=== PATIENT | male | born 1970 | race Caucasian/White ===

== ENCOUNTER 2018-05-09 08:25 | Day surgery (SDC) | payer BC ==
[~2018-05-09 08:25] MED LIST: Dexamethasone 4 MG/ML 5 ML MDV ONE; EPINEPHrine 1 MG/ML 30 ML MDV SCH; HYDROmorphone 0.5 MG/0.5 ML Syringe ONE; Ketorolac 30 MG/ML SDV ONE; Lactated Ringers 1,000 ML IV SCH; Lactated Ringers 1,000 ML ONE; Lidocaine 1% 6 ML ONE; Lidocaine 1%/Sod Bicarbonate in NS 8.4% 1 ML Syringe IDERM PRN; Midazolam 1 MG/ML 2 ML SDV ONE; Ondansetron 4 MG/2 ML SDV ONE; Propofol 200 MG/20 ML SDV ONE; Sodium Chloride 0.9% 10 ML Syringe FLUSH PRN; ceFAZolin 1 GM Vial ONE; fentaNYL 250 MCG/5 ML SDV ONE
[2018-05-09] MEDS ORDERED: Bupivacaine 0.25% 10 ML SDV ONE (09:21)
--- NOTE | 2018-05-09 09:40 | PCM.PREANE ---
Preanesthetic Assessment - Anesthesia/Transfusion/Family Hx Anesthesia History: Prior Anesthesia Without Reaction Family History of Anesthesia Reaction: No Transfusion History: No Prior Transfusion(s) - Review of Systems General: No Symptoms Pulmonary: No Symptoms Cardiovascular: No Symptoms Gastrointestinal: No Symptoms Neurological: No Symptoms Other: Reports: None - Physical Assessment NPO Status Date: 05/08/18 NPO Status Time: 22:30 Pulse: 74 O2 Sat by Pulse Oximetry: 96 Respiratory Rate: 12 Blood Pressure: 151/100 Temperature: 97.8 C ASA Class: 1 Mental Status: Alert & Oriented x3 Airway Class: Mallampati = 1 Dentition: Reports: Normal Dentition Thyro-Mental Finger Breadths: 3 Mouth Opening Finger Breadths: 3 ROM/Head Extension: Full Lungs: Clear to Auscultation, Normal Respiratory Effort Cardiovascular: Regular Rate, Regular Rhythm - Allergies Allergies/Adverse Reactions: Allergies Allergy/AdvReac Type Severity Reaction Status Date / Time erythromycin base Allergy Mild Rash Verified 05/08/18 15:25 [Erythromycin Base] Tetracyclines Allergy Mild Rash Verified 05/08/18 15:25 Penicillins Allergy Nausea and Verified 05/08/18 15:25 Vomiting - Acknowledgements Anesthesia Type Planned: General Anesthesia Pt an Appropriate Candidate for the Planned Anesthesia: Yes Alternatives and Risks of Anesthesia Discussed w Pt/Guardian: Yes Pt/Guardian Understands and Agrees with Anesthesia Plan: Yes PreAnesthesia Questionnaire - Past Health History Medical/Surgical History: Denies Medical/Surgical History HEENT History: Reports: None, Impaired Vision Cardiovascular History: Reports: None Respiratory History: Reports: None Gastrointestinal History: Reports: None Genitourinary History: Reports: None 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 Musculoskeletal History: Reports: None Neurological History: Reports: None Psychiatric History: Reports: None Endocrine/Metabolic History: Reports: None Hematologic History: Reports: None Immunologic History: Reports: None Oncologic (Cancer) History: Reports: None Dermatologic History: Reports: Other (See Below) Other Dermatologic History: rash - Past Surgical History Head Surgeries/Procedures: Reports: None HEENT Surgical History: Reports: Tonsillectomy Cardiovascular Surgical History: Reports: None Respiratory Surgical History: Reports: None GI Surgical History: Reports: None Male Surgical History: Reports: Vasectomy Endocrine Surgical History: Reports: None Neurological Surgical History: Reports: None Musculoskeletal Surgical History: Reports: None, Arthroscopic Knee ((R)) Oncologic Surgical History: Reports: None Dermatological Surgical History: Reports: None - SUBSTANCE USE Smoking Status *Q: Former Smoker Days Per Week of Alcohol Use: 7 Number of Drinks Per Day: 5 Total Drinks Per Week: 35 Recreational Drug Use History: No - HOME MEDS Home Medications: Home Meds Acetaminophen/HYDROcodone [[place] 325-5 MG] 1 - 2 tab PO Q6H PRN #20 tablet 05/09 [Rx] Aspirin 325 mg PO BID #84 tab 05/09/18 [Rx] - CURRENT (IN HOUSE) MEDS Current Meds: Current Medications Epinephrine HCl (Adrenalin) 3 mg .XX ASDIRECTED HARI Stop: 05/09/18 15:00 Lactated Ringer's (Ringers, Lactated) 1,000 mls @ 125 mls/hr IV ASDIRECTED HARI Stop: 05/09/18 23:00 Last Admin: 05/09/18 08:55 Dose: 125 mls/hr Lidocaine/Sodium Bicarbonate (Buffered Lidocaine 1% In Ns 8.4%) 0.25 ml IDERM ONETIME PRN PRN Reason: Prior to IV Start Stop: 05/09/18 18:00 Last Admin: 05/09/18 08:54 Dose: 0.25 ml Sodium Chloride (Saline Flush) 10 ml FLUSH ASDIRECTED PRN PRN Reason: Keep Vein Open Stop: 05/09/18 18:00 Discontinued Medications Bupivacaine HCl (Sensorcaine-Mpf 0.25%) Confirm Administered Dose 10 ml .ROUTE .STK-MED ONE Stop: 05/09/18 09:22 Cefazolin Sodium (Ancef) Confirm Administered Dose 2 gm .ROUTE .STK-MED ONE Stop: 05/09/18 06:52 Dexamethasone (Dexamethasone) Confirm Administered Dose 20 mg .ROUTE .STK-MED ONE Stop: 05/09/18 06:52 Fentanyl (Sublimaze) Confirm Administered Dose 250 mcg .ROUTE .STK-MED ONE Stop: 05/09/18 06:53 Hydromorphone HCl (Dilaudid) Confirm Administered Dose 0.5 mg .ROUTE .STK-MED ONE Stop: 05/09/18 06:52 Lidocaine HCl (Xylocaine-Mpf 1%) Confirm Administered Dose 6 mls @ as directed .ROUTE .STK-MED ONE Stop: 05/09/18 06:52 Lactated Ringer's (Ringers, Lactated) Confirm Administered Dose 1,000 mls @ as directed .ROUTE .STK-MED ONE Stop: 05/09/18 06:52 Ketorolac Tromethamine (Toradol) Confirm Administered Dose 30 mg .ROUTE .STK- MED ONE Stop: 05/09/18 06:52 Midazolam HCl (Versed 1 Mg/Ml) Confirm Administered Dose 2 mg .ROUTE .STK-MED ONE Stop: 05/09/18 06:52 Ondansetron HCl (Zofran) Confirm Administered Dose 4 mg .ROUTE .STK-MED ONE Stop: 05/09/18 06:52 Propofol (Diprivan 20 Ml) Confirm Administered Dose 200 mg .ROUTE .STK-MED ONE Stop: 05/09/18 06:52
[2018-05-09] MEDS ORDERED: Propofol 200 MG/20 ML SDV ONE (10:11)
[2018-05-09] MEDS ORDERED: fentaNYL 100 MCG/2 ML SDV IVPUSH PRN (10:21)
[2018-05-09] MEDS ORDERED: HYDROmorphone 0.5 MG/0.5 ML Syringe IVPUSH PRN (10:21)
[2018-05-09] MEDS ORDERED: ePHEDrine 50 MG/ML SDV IVPUSH PRN (10:21)
[2018-05-09] MEDS ORDERED: Ondansetron 4 MG/2 ML SDV IVPUSH PRN (10:21)
[2018-05-09] MEDS ORDERED: diphenhydrAMINE 50 MG/ML SDV IVPUSH PRN (10:21)
[2018-05-09] MEDS ORDERED: Phenylephrine 1 MG in Sodium Chloride 0.9% 10 ML IV SCH (10:30)
--- NOTE | 2018-05-09 11:20 | PCM.POSTAN ---
POST ANESTHESIA ASSESSMENT - MENTAL STATUS Mental Status: Alert - VITAL SIGNS Pulse Rate: 71 SaO2: 100 (2LPM nasal cannula) Resp Rate: 10 Blood Pressure: 137/88 Temperature: 36.4 C - RESPIRATORY Respiratory Status: Respiratory Rate WNL, Airway Patent, O2 Saturation Stable, Supplemental Oxygen - CARDIOVASCULAR CV Status: Pulse Rate WNL, Blood Pressure Stable - GASTROINTESTINAL GI Status: No Symptoms - POST OP HYDRATION Hydration Status: Adequate & Stable
[2018-05-09] MEDS ORDERED: Acetaminophen/HYDROcodone 325-5 MG Tab PO PRN (11:31)
--- NOTE | 2018-05-09 12:14 | PCM48HPAN ---
Post Anesthesia Note - EVALUATION WITHIN 48HRS OF ANESTHETIC Vital Signs in Normal Range: Yes Patient Participated in Evaluation: Yes Respiratory Function Stable: Yes Airway Patent: Yes Cardiovascular Function Stable: Yes Hydration Status Stable: Yes Pain Control Satisfactory: Yes Nausea and Vomiting Control Satisfactory: Yes Mental Status Recovered: Yes
--- NOTE | 2018-05-13 08:13 | PCM.OPNOTE ---
- General Post-Op/Procedure Note Date of Surgery/Procedure: 05/09/18 Operative Procedure(s): left knee video arthroscopy with partial lateral meniscectomy and partial synovectomy Pre Op Diagnosis: left knee possible medial meniscus tear Post-Op Diagnosis: left knee lateral meniscus tear with ACL tear and synovial hyertrophy Anesthesia Technique: General LMA, Local Primary Surgeon: Suhail Connell Anesthesia Provider: Madelin Villa Assistant Strength Coach: Taya Singh in mLs: 5 Complications: None Condition: Good
--- NOTE | 2018-05-14 10:38 | OR ---
DATE OF OPERATION: 05/09/2018 SURGEON: Suhail Connell MD OPERATION PERFORMED: Left knee video arthroscopy with partial lateral meniscectomy and partial synovectomy. PREOPERATIVE DIAGNOSIS: Left knee medial meniscus tear. POSTOPERATIVE DIAGNOSIS: Left knee lateral meniscus tear with anterior cruciate ligament tear and synovial hypertrophy. ANESTHESIA: General LMA with local. ANESTHESIA PROVIDER: Madelin Villa CRNA. COMPLIANCE TESTING ANALYST: Taya Singh PA-C. ESTIMATED BLOOD LOSS: Less than 5 mL. COMPLICATIONS: None. CONDITION: Stable. DESCRIPTION OF PROCEDURE: The patient was identified in the preop holding area where proper site was marked and identified by surgeon. The patient was taken back to the operating theater where after adequate anesthesia, the patient's right lower extremity was placed in a well leg contreras. The left lower extremity had a nonsterile tourniquet applied and was then placed in a C-clamp contreras. Foot of the bed was then lowered. The left lower extremity was then sterilely prepped and draped in the usual sterile fashion. OR time-out was performed. The patient received 2 g IV Ancef. The left lower extremity was exsanguinated. Tourniquet was insufflated to 250 mmHg. Standard anterolateral portal was made and the scope trocar was introduced. 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 He did have significant synovial hypertrophy near the fat pad especially on the lateral side with significant erythema. At this time, attention was turned to the medial compartment. Anterior medial portal was created. There was no medial meniscus tear noted. No chondromalacia was noted. The patient did have an old ACL tear that was noted to be scarred in the notch. The patient had a posterior horn of the lateral meniscus tear noted at this time. At this time, a partial lateral meniscectomy at the posterior third of the lateral meniscus back to a stable rim near the popliteus was undertaken at this time. The patient did have grade 1/2 chondromalacia changes in the lateral compartment. At this time, a partial synovectomy was also performed on the lateral side of the fat pad as it did have significant overgrowth. Excess saline was drained from the knee. A 3-0 nylon simple suture was used for closure of the skin. The patient was placed in a sterile soft dressing and sent to PACU in stable condition. MMODAL /[id number]
== END 2018-05-09 13:10 | disposition home or self-care (01) ==
LOC: JD.SDS 08:25
PROVIDERS: ATTEND Orthopaedic Surgery
DX: S83.282A Other tear of lateral meniscus, current injury, left knee, initial encounter (principal); S83.512A Sprain of anterior cruciate ligament of left knee, initial encounter; M22.42 Chondromalacia patellae, left knee; M67.262 Synovial hypertrophy, not elsewhere classified, left lower leg; Z87.891 Personal history of nicotine dependence; Z88.1 Allergy status to other antibiotic agents; Z88.0 Allergy status to penicillin
CPT/HCPCS: 29881; A9270; J0171; J0690; J1100; J1170; J1885; J2001; J2250; J2405; J2704; J3010; J3490; J7120; 01400

== ENCOUNTER 2019-03-05 06:29 | Day surgery (SDC) | payer BC ==
[~2019-03-05 06:29] MED LIST changes: -Dexamethasone 4 MG/ML 5 ML MDV ONE; -EPINEPHrine 1 MG/ML 30 ML MDV SCH; -HYDROmorphone 0.5 MG/0.5 ML Syringe ONE; -Ketorolac 30 MG/ML SDV ONE; -Lactated Ringers 1,000 ML ONE; -Lidocaine 1% 6 ML ONE; -Midazolam 1 MG/ML 2 ML SDV ONE; -Ondansetron 4 MG/2 ML SDV ONE; -Propofol 200 MG/20 ML SDV ONE; -ceFAZolin 1 GM Vial ONE; -fentaNYL 250 MCG/5 ML SDV ONE
[2019-03-05] MEDS ORDERED: Bupivacaine 0.25% 10 ML SDV ONE (07:20)
[2019-03-05] MEDS ORDERED: EPINEPHrine 1 MG/ML 30 ML MDV IRR SCH (07:30)
[2019-03-05] MEDS ORDERED: Ketorolac 30 MG/ML SDV ONE (07:38)
[2019-03-05] MEDS ORDERED: Ondansetron 4 MG/2 ML SDV ONE (07:38)
[2019-03-05] MEDS ORDERED: Propofol 200 MG/20 ML SDV ONE ×2 (07:38→09:04)
[2019-03-05] MEDS ORDERED: Lactated Ringers 1,000 ML ONE (07:38)
[2019-03-05] MEDS ORDERED: Lidocaine 1% 4 ML ONE (07:38)
[2019-03-05] MEDS ORDERED: Dexamethasone 4 MG/ML 5 ML MDV ONE (07:38)
[2019-03-05] MEDS ORDERED: Midazolam 1 MG/ML 2 ML SDV ONE (07:38)
[2019-03-05] MEDS ORDERED: fentaNYL 250 MCG/5 ML SDV ONE (07:38)
[2019-03-05] MEDS ORDERED: ceFAZolin 1 GM Vial ONE (07:38)
[2019-03-05] MEDS ORDERED: HYDROmorphone 0.5 MG/0.5 ML Syringe ONE ×2 (07:41→08:28)
[2019-03-05] MEDS ORDERED: Ketamine 500 mg/10 ML MDV ONE (08:28)
[2019-03-05] MEDS ORDERED: fentaNYL 100 MCG/2 ML SDV IVPUSH PRN (08:54)
[2019-03-05] MEDS ORDERED: Ondansetron 4 MG/2 ML SDV IVPUSH PRN (08:54)
[2019-03-05] MEDS ORDERED: HYDROmorphone 0.5 MG/0.5 ML Syringe IVPUSH PRN (08:54)
--- NOTE | 2019-03-05 09:09 | PCM.PREANE ---
Preanesthetic Assessment - Procedure Proposed Procedure: Left Knee Video Arthroscopy with ACL reconstruction with graft - Anesthesia/Transfusion/Family Hx Anesthesia History: Prior Anesthesia Without Reaction Family History of Anesthesia Reaction: No Transfusion History: No Prior Transfusion(s) - Review of Systems General: No Symptoms Pulmonary: No Symptoms Cardiovascular: No Symptoms (History of elevated BP with last surgery. Takes his BP every morning. 120-130/70-80 at home. ) Gastrointestinal: No Symptoms Neurological: No Symptoms Other: Reports: None - Physical Assessment NPO Status Date: 03/04/19 NPO Status Time: 21:30 Vital Signs: Last Vital Signs Temp 36.7 C 03/05/19 06:35 Pulse 66 03/05/19 06:35 Resp 16 03/05/19 07:00 BP 140/99 H 03/05/19 07:00 Pulse Ox 96 03/05/19 07:00 Height: 1.83 m Weight: 79.379 kg ASA Class: 2 Mental Status: Alert & Oriented x3 Airway Class: Mallampati = 1 Dentition: Reports: Normal Dentition Thyro-Mental Finger Breadths: 3 Mouth Opening Finger Breadths: 3 ROM/Head Extension: Full Lungs: Clear to Auscultation, Normal Respiratory Effort Cardiovascular: Regular Rate, Regular Rhythm - Lab Values: Laboratory Last Values MRSA (PCR) Negative 02/05/19 13:19 - Allergies Allergies/Adverse Reactions: Allergies Allergy/AdvReac Type Severity Reaction Status Date / Time erythromycin base Allergy Mild Rash Verified 03/04/19 16:51 [Erythromycin Base] Tetracyclines Allergy Mild Rash Verified 03/04/19 16:51 Penicillins AdvReac Nausea and Verified 03/04/19 16:51 Vomiting - Anesthesia Plan Pre-Op Medication Ordered: Anxiolytic - Acknowledgements Anesthesia Type Planned: General Anesthesia Pt an Appropriate Candidate for the Planned Anesthesia: Yes Alternatives and Risks of Anesthesia Discussed w Pt/Guardian: Yes Pt/Guardian Understands and Agrees with Anesthesia Plan: Yes Additional Comments: Remi has refused a preoperative femoral nerve block at this time. Benefit and risk explained in detail. He is confident in his decision and has no further questions at this time. 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 Musculoskeletal History: Reports: None Neurological History: Reports: None Psychiatric History: Reports: None Endocrine/Metabolic History: Reports: None Hematologic History: Reports: None Immunologic History: Reports: None Oncologic (Cancer) History: Reports: None Dermatologic History: Reports: Other (See Below) Other Dermatologic History: rash - Past Surgical History Head Surgeries/Procedures: Reports: None HEENT Surgical History: Reports: Tonsillectomy Cardiovascular Surgical History: Reports: None Respiratory Surgical History: Reports: None GI Surgical History: Reports: None Male Surgical History: Reports: Vasectomy Endocrine Surgical History: Reports: None Neurological Surgical History: Reports: None Musculoskeletal Surgical History: Reports: Arthroscopic Knee Oncologic Surgical History: Reports: None Dermatological Surgical History: Reports: None - SUBSTANCE USE Smoking Status *Q: Former Smoker Days Per Week of Alcohol Use: 7 Number of Drinks Per Day: 4 Total Drinks Per Week: 28 Recreational Drug Use History: No - HOME MEDS Home Medications: Home Meds Acetaminophen/HYDROcodone [[place] 325-5 MG] 1 - 2 tab PO Q6H PRN #30 tablet 03/05 [Rx] Aspirin 325 mg PO BID #84 tab 03/05/19 [Rx] Cyclobenzaprine [Flexeril] 10 mg PO Q8H PRN #40 tab 03/05/19 [Rx] - CURRENT (IN HOUSE) MEDS Current Meds: Current Medications Epinephrine HCl (Adrenalin) 3 mg IRR ONETIME HARI Stop: 03/05/19 12:00 Fentanyl (Sublimaze) 50 mcg IVPUSH Q5M PRN PRN Reason: Pain Hydromorphone HCl (Dilaudid) 0.5 mg IVPUSH Q10M PRN PRN Reason: Pain (severe 7-10) Lactated Ringer's (Ringers, Lactated) 1,000 mls @ 125 mls/hr IV ASDIRECTED HARI Stop: 03/05/19 23:00 Last Admin: 03/05/19 06:55 Dose: 125 mls/hr Lidocaine/Sodium Bicarbonate (Buffered Lidocaine 1% In Ns 8.4%) 0.25 ml IDERM ONETIME PRN PRN Reason: Prior to IV Start Stop: 03/05/19 23:00 Last Admin: 03/05/19 06:55 Dose: 0.25 ml Ondansetron HCl (Zofran) 4 mg IVPUSH ONETIME PRN PRN Reason: Nausea/Vomiting Sodium Chloride (Saline Flush) 10 ml FLUSH ASDIRECTED PRN PRN Reason: Keep Vein Open Stop: 03/05/19 23:00 Discontinued Medications Bupivacaine HCl (Sensorcaine-Mpf 0.25%) Confirm Administered Dose 30 ml .ROUTE .STK-MED ONE Stop: 03/05/19 07:21 Cefazolin Sodium (Ancef) Confirm Administered Dose 2 gm .ROUTE .STK-MED ONE Stop: 03/05/19 07:39 Dexamethasone (Dexamethasone) Confirm Administered Dose 20 mg .ROUTE .STK-MED ONE Stop: 03/05/19 07:39 Fentanyl (Sublimaze) Confirm Administered Dose 250 mcg .ROUTE .STK-MED ONE Stop: 03/05/19 07:39 Hydromorphone HCl (Dilaudid) Confirm Administered Dose 0.5 mg .ROUTE .STK-MED ONE Stop: 03/05/19 07:42 Hydromorphone HCl (Dilaudid) Confirm Administered Dose 0.5 mg .ROUTE .STK-MED ONE Stop: 03/05/19 08:29 Lidocaine HCl (Xylocaine-Mpf 1%) Confirm Administered Dose 4 mls @ as directed .ROUTE .STK-MED ONE Stop: 03/05/19 07:39 Lactated Ringer's (Ringers, Lactated) Confirm Administered Dose 1,000 mls @ as directed .ROUTE .STK-MED ONE Stop: 03/05/19 07:39 Ketamine HCl (Ketalar) Confirm Administered Dose 500 mg .ROUTE .STK-MED ONE Stop: 03/05/19 08:29 Ketorolac Tromethamine (Toradol) Confirm Administered Dose 30 mg .ROUTE .STK- MED ONE Stop: 03/05/19 07:39 Midazolam HCl (Versed 1 Mg/Ml) Confirm Administered Dose 2 mg .ROUTE .STK-MED ONE Stop: 03/05/19 07:39 Ondansetron HCl (Zofran) Confirm Administered Dose 4 mg .ROUTE .STK-MED ONE Stop: 03/05/19 07:39 Propofol (Diprivan 20 Ml) Confirm Administered Dose 400 mg .ROUTE .STK-MED ONE Stop: 03/05/19 07:39
--- NOTE | 2019-03-05 10:11 | PCM.POSTAN ---
POST ANESTHESIA ASSESSMENT - MENTAL STATUS Mental Status: Somnolent - VITAL SIGNS Vital Signs: Last Vital Signs 1004 114/83 64 8 99% 97.9F - RESPIRATORY Respiratory Status: Respiratory Rate WNL, Airway Patent, O2 Saturation Stable, Supplemental Oxygen - CARDIOVASCULAR CV Status: Pulse Rate WNL, Blood Pressure Stable - GASTROINTESTINAL GI Status: No Symptoms - PAIN Pain Score: 0 - POST OP HYDRATION Hydration Status: Adequate & Stable
[2019-03-05] MEDS ORDERED: Acetaminophen/HYDROcodone 325-5 MG Tab PO PRN (10:34)
--- NOTE | 2019-03-05 12:06 | CR ---
Left knee: Single AP fluoroscopic spot view of the left knee was obtained utilizing C-arm device. ACL repair surgery is noted. Fluoroscopy time given as 1.0 seconds. Impression: 1. Procedural study. Diagnostic code #2 This report was dictated in [place] Standard Time
--- NOTE | 2019-03-05 14:31 | PCM48HPAN ---
Post Anesthesia Note - EVALUATION WITHIN 48HRS OF ANESTHETIC Vital Signs in Normal Range: Yes Patient Participated in Evaluation: Yes Respiratory Function Stable: Yes Airway Patent: Yes Cardiovascular Function Stable: Yes Hydration Status Stable: Yes Pain Control Satisfactory: Yes Nausea and Vomiting Control Satisfactory: Yes Mental Status Recovered: Yes Vital Signs: Last Vital Signs Temp 36.7 C 03/05/19 10:50 Pulse 75 03/05/19 11:55 Resp 16 03/05/19 11:55 BP 159/104 H 03/05/19 11:55 Pulse Ox 95 03/05/19 11:55
--- NOTE | 2019-03-06 16:38 | PCM.OPNOTE ---
- General Post-Op/Procedure Note Date of Surgery/Procedure: 03/05/19 Operative Procedure(s): left knee video arthroscopy with allograft ACL reconstruction Pre Op Diagnosis: left knee acl deficiency Post-Op Diagnosis: Same Anesthesia Technique: General LMA, Regional Block Primary Surgeon: Suhail Connell Anesthesia Provider: Glo Rhoades Computer Discovery Teacher: Taya Singh Computer Discovery Teacher: Heather Walker EBEzio in mLs: 5 Complications: None Condition: Good
--- NOTE | 2019-03-06 17:22 | OR ---
DATE OF OPERATION: 03/05/2019 SURGEON: Suhail Connell MD OPERATION PERFORMED: OPERATIVE PROCEDURE: Left knee video arthroscopy with allograft anterior cruciate ligament reconstruction. PREOPERATIVE DIAGNOSIS: Left knee anterior cruciate ligament deficiency. POSTOPERATIVE DIAGNOSIS: Left knee anterior cruciate ligament deficiency. ANESTHESIA: TECHNIQUE: General LMA with regional femoral block. ANESTHESIA PROVIDER: Suze Abel. CONVERTER SKIMMER: Taya Singh PA-C, and Heather Walker LPN. ESTIMATED FLUID LOSS: 5 mL. COMPLICATIONS: None. CONDITION: Stable. DESCRIPTION OF PROCEDURE: The patient was identified in the preop holding area. Proper site was marked and identified by surgeon. The patient was taken back to the operating theater, where after adequate anesthesia, the patient's right lower extremity was placed in a well leg contreras. Left lower extremity had a nonsterile tourniquet applied and was placed in a C-clamp contreras and then the foot then was lowered. Left lower extremity was then sterilely prepped and draped in the usual sterile fashion. OR time-out was performed. The patient received 2 g IV Ancef. The left lower extremity was exsanguinated. Tourniquet was insufflated to 250 mmHg. At this time, standard anterolateral portal incision was made close to the patellar tendon. The scope trocar was introduced. 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 He had grade 1/2 at the medial compartment and anteromedial portal was then created with the use of spinal needle. There was no medial meniscus tear. The ACL was completely torn off the femoral attachment. The lateral side showed no chondromalacia changes and no lateral meniscus tear. At this time, the graft was opened on the back table, was prepared by Taya Singh PA-C and Heather Walker LPN. After a length of roughly 80 mm and was whipstitched on both the ends for shuttle of a femoral Endobutton. While this was going on, I did clear the notch of the previous ACL fibers. The tibial guide was then placed at 55 degrees. Incision was made on the tibial side and medial side. The guide was placed in the old footprint, in center-center position of the old footprint and a 10 mm reamer was then used into the old footprint and was found to be in adequate position. A 105 degree foot-cutter guide was then placed on the femoral side near the posterior wall, roughly 3 mm rim on the posterior wall and a 9.5 mm flip cutter was used for a tunnel length of 20 mm on the femoral side and it was found to be in adequate position. At this time, the graft was shuttled up through the tibia into the femur. The Endobutton was flipped and on C-arm fluoroscopy showed it to be in good position. The graft was then shuttled up into the femoral tunnel and was found to have adequate position. The patient had full flexion extension with no impingement noted in the notch. The patient's knee was brought through a cycled range of motion and tension was held on the sutures. A drill was then utilized for a 4.5 Cuttyhunk; stainless steel screw with a washer. A 40 mm screw was then placed. The tibial suture limbs were then tied over the washer and then this was tightened. The patient had negative anterior drawer under direct visualization. Excess saline was drained from the knee. A 2-0 Vicryl and then Monocryl was used for closure of the incisions. The patient had a sterile soft dressing applied as well as a hinged knee brace locked in full extension. ESTIMATED BLOOD LOSS: MMODAL /[id number]
== END 2019-03-05 12:05 | disposition home or self-care (01) ==
LOC: JD.SDS 06:29
PROVIDERS: ATTEND Orthopaedic Surgery
DX: S83.512A Sprain of anterior cruciate ligament of left knee, initial encounter (principal); M22.42 Chondromalacia patellae, left knee; Z88.1 Allergy status to other antibiotic agents; Z88.0 Allergy status to penicillin; Z87.891 Personal history of nicotine dependence
CPT/HCPCS: 29888; 76000; 87641; A9270; C1713; C1762; J0690; J1100; J1170; J1885; J2001; J2250; J2405; J2704; J3010; J3490; J7120; 01400

== ENCOUNTER 2020-09-11 12:49 | Emergency (ER) | payer BC ==
[2020-09-11] MEDS ORDERED: Lidocaine 1% 10 ML MDV INJECT ONE (13:00)
[2020-09-11] MEDS ORDERED: Diphtheria,Pertussis(Acell),Tetanus Vaccine 0.5 ML Syringe IM ONE (13:03)
--- NOTE | 2020-09-11 13:38 | EDM.PDOC ---
ED HPI GENERAL MEDICAL PROBLEM - General Chief Complaint: Upper Extremity Injury/Pain Stated Complaint: RT HAND LAC Time Seen by Provider: 09/11/20 13:00 Source of Information: Reports: Patient, Family, RN Notes Reviewed History Limitations: Reports: No Limitations - History of Present Illness INITIAL COMMENTS - FREE TEXT/NARRATIVE: Patient is a 49-year-old male presenting to the emergency department with complaints of laceration to his right hand. Reports that he cut it on a piece of glass. He is not on blood thinners. He is unsure when his last tetanus vaccination was. Right Hand Pain Score (Numeric/FACES): 3 - Related Data Allergies Allergy/AdvReac Type Severity Reaction Status Date / Time erythromycin base Allergy Severe Rash Verified 09/11/20 13:03 [Erythromycin Base] Tetracyclines Allergy Severe Rash Verified 09/11/20 13:03 Penicillins AdvReac Severe Nausea and Verified 09/11/20 13:03 Vomiting Home Meds: Home Meds . 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 Musculoskeletal History: Reports: None Neurological History: Reports: None Psychiatric History: Reports: None Endocrine/Metabolic History: Reports: None Hematologic History: Reports: None Immunologic History: Reports: None Oncologic (Cancer) History: Reports: None Dermatologic History: Reports: Other (See Below) Other Dermatologic History: rash - Infectious Disease History Infectious Disease History: Reports: Chicken Pox - Past Surgical History Head Surgeries/Procedures: Reports: None HEENT Surgical History: Reports: Tonsillectomy Cardiovascular Surgical History: Reports: None Respiratory Surgical History: Reports: None GI Surgical History: Reports: None Male Surgical History: Reports: Vasectomy Endocrine Surgical History: Reports: None Neurological Surgical History: Reports: None Musculoskeletal Surgical History: Reports: Arthroscopic Knee Oncologic Surgical History: Reports: None Dermatological Surgical History: Reports: None Social & Family History - Tobacco Use Tobacco Use Status *Q: Never Tobacco User - Caffeine Use Caffeine Use: Reports: Coffee, Other Other Caffeine Use: pre-work out - Recreational Drug Use Recreational Drug Use: No Review of Systems - Review of Systems Review Of Systems: Comprehensive ROS is negative, except as noted in HPI. ED EXAM, GENERAL - Physical Exam Exam: See Below Exam Limited By: No Limitations General Appearance: Alert, WD/WN, No Apparent Distress Respiratory/Chest: No Respiratory Distress, Lungs Clear, Normal Breath Sounds, No Accessory Muscle Use, Chest Non-Tender Cardiovascular: Normal Peripheral Pulses, Regular Rate, Rhythm, No Edema, No Gallop, No JVD, No Murmur, No Rub Extremities: Other (4.25 cm laceration to the lateral aspect of the right hand proximal to the thumb. Moderate active bleeding. Patient has full range of motion and strength to flexion and extension of his thumb.) Psychiatric: Normal Affect, Normal Mood ED TRAUMA EXTREMITY PROCEDURES - Laceration/Wound Repair Right Lateral Proximal Hand Appearance: Subcutaneous, Clean Distal NVT: Neuro & Vascular Intact, No Tendon Injury Anesthetic Type: Local Local Anesthesia - Lidocaine (Xylocaine): 1% Plain Local Anesthetic Volume: 3cc Skin Prep: Chlorhexidine (Hibiciens), Saline, Sterile Drape Saline Irrigation (cc's): 150 Exploration/Debridement/Repair: Wound Explored, In a Bloodless Field, Explored to Base, No Foreign Material Found Closed With: Sutures Suture Size: 4-0 # of Sutures: 8 Suture Type: Nylon Sterile Dressing Applied: Nurse Tetanus Status Addressed: Yes Complications: No Course - Vital Signs Last Recorded V/S: Last Vital Signs Temp 98.3 F 09/11/20 12:58 Pulse 83 09/11/20 12:58 Resp 20 09/11/20 12:58 BP 161/111 H 09/11/20 12:58 Pulse Ox 99 09/11/20 12:58 - Orders/Labs/Meds Orders: Active Orders 24 hr Category Date Time Status Vaccines to be Administered [RC] PER UNIT ROUTINE Care 09/11/20 13:03 Active Meds: Medications Discontinued Medications Generic Name Dose Route Start Last Admin Trade Name Freq PRN Reason Stop Dose Admin Diphtheria/Tetanus/Acell Pertussis 0.5 ml 09/11/20 13:03 Diphtheria,Pertussis(Acell),Tetanus Vaccine 0.5 Ml Syringe IM 09/11/20 13:04 .ONCE ONE Lidocaine HCl 10 ml 09/11/20 13:00 09/11/20 13:04 Lidocaine 1% 10 Ml Mdv INJECT 09/11/20 13:01 10 ml ONETIME ONE Administration Departure - Departure Time of Disposition: 13:38 Disposition: Home, Self-Care 01 Preliminary Cause of *Q: Sepsis & Multi System Organ Failure Clinical Impression: Laceration - Discharge Information *PRESCRIPTION DRUG MONITORING PROGRAM REVIEWED*: No *COPY OF PRESCRIPTION DRUG MONITORING REPORT IN PATIENT MARS: No Instructions: Laceration Care, Adult Referrals: PCP,None [Primary Care Provider] - Additional Instructions: You were seen in the emergency department today for a laceration to your right hand. The wound was cleansed and closed with 8 sutures. These should stay intact for 7-10 days. After that time they may be removed in the clinic by a nurse. Keep the wound clean and dry. Wash with normal soap and water twice daily. Do not submerge the wound in water. Watch for signs of infection including increased redness, swelling, or purulent drainage. If these should occur, you should be seen either in the clinic or in the emergency department as antibiotic treatment may be needed. Return to the ER as needed. Sepsis Event Note (ED) - Evaluation Sepsis Screening Result: No Definite Risk - Focused Exam Vital Signs: Vital Signs Temp Pulse Resp BP Pulse Ox 09/11/20 12:58 98.3 F 83 20 161/111 H 99 - My Orders Last 24 Hours: My Active Orders 09/11/20 13:03 Vaccines to be Administered [RC] PER UNIT ROUTINE - Assessment/Plan Last 24 Hours: My Active Orders 09/11/20 13:03 Vaccines to be Administered [RC] PER UNIT ROUTINE
== END 2020-09-11 13:47 | disposition home or self-care (01) ==
LOC: JD.ED 12:49
DX: S61.411A Laceration without foreign body of right hand, initial encounter (principal); Z23 Encounter for immunization; Z88.1 Allergy status to other antibiotic agents; Z88.0 Allergy status to penicillin; W25.XXXA Contact with sharp glass, initial encounter
CPT/HCPCS: 12002; 90471; 90715; 99282; 99282-25